=== PATIENT | female | born 1955 | race Caucasian/White ===

== ENCOUNTER 2018-11-29 16:58 | Emergency (ER) | payer OTHER ==
[2018-11-29] MEDS ORDERED: METHYLPREDNISOLONE PF 125MG/VIAL IVP ONE (17:04)
--- NOTE | 2018-11-29 17:04 | Emergency Department Record ---
History of Present Illness - General Chief complaint: Bite Insect/other Stated complaint: BEE STING Time Seen by Provider: 11/29/18 17:04 Source: Patient Mode of Arrival: Ambulatory Limitations: No limitations - History of Present Illness Initial comments: The patient is here due to multiple insect stings to his legs and L arm about an hour ago. 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 The patient did take 100 Mg of Benadryl and did use his Epi Pen. He is having some itching locally at the insect sting sites but no SOB, difficulty swallowing, KIRAN, or CP. The patient does have a hx of heavy tobacco use. MD complaint: Insect bite/sting, Rash Onset/Timin -: Hour(s) - Related Data Home Medications Medication Instructions Recorded Confirmed Last Taken Gemfibrozil [Lopid] 600 mg PO DAILY 11/29/18 11/29/18 11/29/18 Lisinopril 40 mg PO DAILY 11/29/18 11/29/18 11/29/18 Previous Rx's Medication Instructions Recorded Epinephrine [Epipen] 0.3 mg IM ASDIR PRN #1 syr 11/29/18 Prednisone [Prednisone 20Mg] 40 mg PO DAILY #10 tab 11/29/18 Allergies Allergy/AdvReac Type Severity Reaction Status Date / Time bee venom protein (honey bee) Allergy ANAPHYLAXIS Verified 11/29/18 17:15 Penicillins Allergy HIVES Verified 11/29/18 17:15 Review of Systems Constitutional: Denies: Chills, Fever Eyes: Denies: Eye discharge ENT: Denies: Congestion Respiratory: Denies: Cough, Dyspnea Cardiovascular: Denies: Arrhythmia, Chest pain Endocrine: Denies: Fatigue Gastrointestinal: Denies: Nausea Genitourinary: Denies: Dysuria Musculoskeletal: Denies: Arthralgia Skin: Denies: Bruising Past Medical History - SOCIAL HISTORY Smoking Status: Current every day smoker Alcohol Use: None - RESPIRATORY Hx COPD: Yes - CARDIOVASCULAR Hx Cardio Disorders: Yes Hx Hypertension: Yes - NEURO Hx Neuro Disorders: No Physical Exam - General General Appearance: Alert, Oriented x3, Cooperative, No acute distress (The patient is calm and cooperative in no distress and presently not itching.) - Head Head exam: Atraumatic, Normocephalic - Eye Eye exam: Normal appearance, PERRL - ENT Throat exam: Normal inspection. negative: Tonsillar erythema, Tonsillar exudate - Neck Neck exam: Normal inspection, Full ROM. negative: Tenderness - Respiratory Respiratory exam: Decreased breath sounds (mildly.). negative: Normal lung sounds bilaterally, Rhonchi, Stridor, Wheezes - Cardiovascular Cardiovascular Exam: Regular rate, Normal rhythm, Normal heart sounds - GI/Abdominal GI/Abdominal exam: Soft, Normal bowel sounds. negative: Tenderness - Extremities Extremities exam: negative: Normal inspection (There are multiple areas of mild erythema to the legs and L arm at the sting sites.) - Back Back exam: Reports: Normal inspection - Neurological Neurological exam: Alert, Normal gait. negative: Abnormal gait, Motor sensory deficit Course - Reevaluation(s) Reevaluation #1: The patient is doing very well at this time. He denies any pain or SOB and is speaking normally. There is no generalized rash but he does have some mild itching at the multiple insect sting sites. On exam his lungs are now clear with no decreased breath sounds or wheezing. 11/29/18 17:32 Reevaluation #2: The patient is doing very well at this time. He is resting comfortably with only mild itching at the sting sites. There is no SOB, KIRAN, or body rash. 11/29/18 17:55 Reevaluation #3: The patient is doing very well at this time. He denies any itching, rash, or any trouble breathing. On exam his lungs are clear and his RA biox is 98%. We will watch him to the 2 hour aliza and then discharge to home. 11/29/18 18:44 Medical Decision Making - Data Complexity MDM Data: EKG Ordered and/or Reviewed - EKG Data -: EKG Interpreted by Me EKG: No Acute Changes, Normal EKG Disposition Disposition: Discharge Clinical Impression: Allergic reaction to bee sting Disposition: Home, Self-Care Condition: (2) Stable Instructions: Insect Bite or Sting (ED) Additional Instructions: Please continue the Benadryl 4 times a day for 5 days and continue the Prednisone tomorrow. Please return to the ER for any worsening itching, any rash or ANY shortness of breath, trouble breathing or pain. Prescriptions: Epinephrine [Epipen] 0.3 mg IM ASDIR PRN #1 syr PRN Reason: Anaphylaxis Prednisone [Prednisone 20Mg] 40 mg PO DAILY #10 tab Forms: Patient Portal Access Time of Disposition: 18:18 Quality - Quality Measures Quality Measures: N/A - Blood Pressure Screening View Details: Yes Does Patient Have Any of the Following: Active Dx of HTN Blood Pressure Classification: Hypertensive Reading Systolic Measurement: 140 Diastolic Measurement: 92 Screening for High Blood Pressure: Patient Exclusion, Hx of HTN [G9744] First Hypertensive Follow-up Interventions: Referral to alternative/primary care provider.
[2018-11-29] MEDS ORDERED: IPRATROPIUM/ALBUTEROL (0.5MG/3MG) NEB INH ONE (17:12)
[2018-11-29] MEDS ORDERED: RANITIDINE HCL 50 MG in 0.9 % SODIUM CHLORIDE 100ML 100 ML IVPB ONE (17:13)
== END 2018-11-29 19:07 | disposition home or self-care (01) ==
LOC: ER 16:58
DX: T63.441A Toxic effect of venom of bees, accidental (unintentional), initial encounter (principal); L29.9 Pruritus, unspecified; F17.210 Nicotine dependence, cigarettes, uncomplicated
CPT/HCPCS: 93005; 93010; 94640; 96374; 99284; J2780; J2930